=== PATIENT | female | born 1960 | race Caucasian/White ===

== ENCOUNTER 2021-11-10 16:30 | Inpatient (IN) | payer BC ==
[2021-11-10 18:45] VITALS: BMI 23.1
[2021-11-10] MEDS ORDERED: MAGNESIUM CITRATE 300 ML BOTTLE PO PRN (19:37)
[2021-11-10] MEDS ORDERED: DICYCLOMINE HCL 10 MG CAPSULE PO PRN (19:37)
[2021-11-10] MEDS ORDERED: BISMUTH SUBSALICYLATE 524 MG/30 ML PO PRN (19:37)
[2021-11-10] MEDS ORDERED: BENZOCAINE/MENTHOL (CHLORASEPTIC ) LOZENGE MM PRN (19:37)
[2021-11-10] MEDS ORDERED: MAG HYDROX/AL HYDROX/SIMETH 30 ML UNIT-DOSE CUP PO PRN (19:37)
[2021-11-10] MEDS ORDERED: MAGNESIUM HYDROX 2400MG/30ML ORAL SUSPENSION 30 ML CUP PO PRN (19:37)
[2021-11-10] MEDS ORDERED: IBUPROFEN 400 MG TABLET (FP) PO PRN (19:37)
[2021-11-10] MEDS ORDERED: ONDANSETRON *ODT* 4 MG TABLET SL PRN (19:37)
[2021-11-10] MEDS ORDERED: ACETAMINOPHEN 325 MG TABLET (FP) PO PRN (19:37)
[2021-11-10] MEDS ORDERED: LOPERAMIDE HCL 2 MG CAPSULE PO PRN (19:37)
[2021-11-10] MEDS: diazePAM 5 MG TABLET PO SCH (22:27)
[2021-11-10] MEDS ORDERED: ACETAMINOPHEN 325 MG TABLET (FP) ONE ×2 (23:55→23:57)
[2021-11-10] MEDS ORDERED: hydrOXYzine PAMOATE 25 MG CAPSULE (FP) PO ONE (23:56)
[2021-11-11] MEDS: hydrOXYzine PAMOATE 25 MG CAPSULE (FP) PO PRN ×3 (00:16→19:30)
[2021-11-11] MEDS: ACETAMINOPHEN 325 MG TABLET (FP) PO PRN ×3 (00:17→17:58)
[2021-11-11] MEDS ORDERED: diazePAM 5 MG TABLET ONE ×2 (09:46→11:25)
[2021-11-11] MEDS ORDERED: ACETAMINOPHEN 325 MG TABLET (FP) ONE (11:25)
[2021-11-11] MEDS: diazePAM 5 MG TABLET PO SCH ×4 (11:33→22:04)
[2021-11-11] MEDS: THIAMINE HCL 100 MG TABLET (FP) PO SCH ×2 (11:56→22:03)
[2021-11-11] MEDS: PRENATAL VITAMINS W/ FOLIC ACID TABLET (FP) PO SCH ×2 (11:56)
[2021-11-11] MEDS: METHOCARBAMOL 500 MG TABLET PO PRN (11:58)
[2021-11-11 14:10] LABS: HEMATOCRIT 30.1 % (32.4-45.2); HEMOGLOBIN 10.1 GM/dL (10.7-15.3); MCH 32.2 pg (25.7-33.7); MCHC 33.5 g/dl (32.0-36.0); MEAN CELL VOLUME 95.9 fl (80-96); MEAN PLT VOLUME 9.1 fl (7.5-11.1); PLATELET COUNT 103 10^3/uL (134-434); RBC 3.14 M/mm3 (3.60-5.2); RDW 16.1 % (11.6-15.6); WHITE BLOOD COUNT 3.7 K/mm3 (4.0-10.0)
[2021-11-11 14:22] LABS: CALCIUM 8.4 mg/dL (8.5-10.1)
[2021-11-11 14:23] LABS: ALBUMIN 3.2 g/dl (3.4-5.0); BLOOD UREA NITROGEN 20.1 mg/dL (7-18)
[2021-11-11 14:26] LABS: CREATININE 0.7 mg/dL (0.55-1.3)
[2021-11-11 14:27] LABS: BILIRUBIN,TOTAL 0.4 mg/dL (0.2-1); TOT PROT 6.3 g/dl (6.4-8.2)
[2021-11-12] MEDS: diazePAM 5 MG TABLET PO SCH ×3 (06:02→21:56)
[2021-11-12] MEDS ORDERED: SERTRALINE HCL 50 MG TABLET (FP) PO SCH (10:00)
[2021-11-12] MEDS ORDERED: SERTRALINE HCL 25 MG TABLET (FP) PO SCH (10:00)
[2021-11-12] MEDS: PRENATAL VITAMINS W/ FOLIC ACID TABLET (FP) PO SCH (10:27)
[2021-11-12] MEDS: SERTRALINE HCL 50 MG TABLET (FP) PO SCH (10:27)
[2021-11-12] MEDS: ACETAMINOPHEN 325 MG TABLET (FP) PO PRN (10:27)
[2021-11-12] MEDS: hydrOXYzine PAMOATE 25 MG CAPSULE (FP) PO PRN ×3 (12:32→21:56)
[2021-11-12] MEDS: METHOCARBAMOL 500 MG TABLET PO PRN (12:32)
[2021-11-12] MEDS ORDERED: POTASSIUM CHLORIDE TABS 20 MEQ TABLET.ER (FP) PO ONE (14:28)
[2021-11-12] MEDS: diazePAM 5 MG TABLET PO PRN (17:56)
[2021-11-12] MEDS: MELATONIN 5 MG TABLETS PO PRN (21:56)
[2021-11-12] MEDS: THIAMINE HCL 100 MG TABLET (FP) PO SCH (21:56)
[2021-11-13] MEDS: diazePAM 5 MG TABLET PO SCH ×2 (06:00→17:20)
[2021-11-13] MEDS: PRENATAL VITAMINS W/ FOLIC ACID TABLET (FP) PO SCH (10:41)
[2021-11-13] MEDS: SERTRALINE HCL 50 MG TABLET (FP) PO SCH (10:41)
[2021-11-13] MEDS: LISINOPRIL 5 MG TABLET PO SCH (11:48)
[2021-11-13 12:56] LABS: CALCIUM 9.3 mg/dL (8.5-10.1)
[2021-11-13 12:57] LABS: BLOOD UREA NITROGEN 16.3 mg/dL (7-18)
[2021-11-13 13:00] LABS: CREATININE 0.6 mg/dL (0.55-1.3)
[2021-11-13 14:07] LABS: SARS-CoV-2 NAA Not Detected (Not Detected)
[2021-11-13] MEDS: diazePAM 5 MG TABLET PO PRN (14:09)
[2021-11-13] MEDS: hydrOXYzine PAMOATE 25 MG CAPSULE (FP) PO PRN ×2 (17:20→21:41)
[2021-11-13] MEDS: MELATONIN 5 MG TABLETS PO PRN (21:40)
[2021-11-13] MEDS: THIAMINE HCL 100 MG TABLET (FP) PO SCH (21:40)
[2021-11-14] MEDS ORDERED: diazePAM 5 MG TABLET PO ONE (06:00)
[2021-11-14 09:34] VITALS: TEMP 97.1
[2021-11-14 09:48] LABS: BASO % 0.9 % (0-2.0); EOS % 4.1 % (0-4.5); HEMOGLOBIN 10.2 GM/dL (10.7-15.3); LYMPH % 32.2 % (8-40); MCH 31.7 pg (25.7-33.7); MCHC 32.9 g/dl (32.0-36.0); MEAN CELL VOLUME 96.3 fl (80-96); MEAN PLT VOLUME 9.3 fl (7.5-11.1); NEUT % 46.8 % (42.8-82.8); PLATELET COUNT 165 10^3/uL (134-434); RBC 3.22 M/mm3 (3.60-5.2); WHITE BLOOD COUNT 4.9 K/mm3 (4.0-10.0)
[2021-11-14] MEDS: PRENATAL VITAMINS W/ FOLIC ACID TABLET (FP) PO SCH (10:13)
[2021-11-14] MEDS: LISINOPRIL 5 MG TABLET PO SCH (10:13)
[2021-11-14] MEDS: SERTRALINE HCL 50 MG TABLET (FP) PO SCH (10:13)
[2021-11-14] MEDS: hydrOXYzine PAMOATE 25 MG CAPSULE (FP) PO PRN (10:13)
[2021-11-14 13:14] VITALS: BP 117/73; PULSE 80
== END 2021-11-14 13:27 | disposition home or self-care (01) | DRG 775 ==
LOC: YASAS 16:30 → Y6N 11-11 11:19
PROVIDERS: ADMIT Allergy & Immunology; ATTEND Surgery
PROC: HZ2ZZZZ Detoxification Services for Substance Abuse Treatment (ICD-10-PCS; principal; 2021-11-11)
DX: F10.230 Alcohol dependence with withdrawal, uncomplicated (principal); F10.24 Alcohol dependence with alcohol-induced mood disorder; F32.A Depression, unspecified; F41.9 Anxiety disorder, unspecified; E87.6 Hypokalemia; I10 Essential (primary) hypertension; R79.89 Other specified abnormal findings of blood chemistry
CPT/HCPCS: 36415; 80048; 80053; 82962; 85025; 85027; 86780; C9803-CS; U0003; U0005